=== PATIENT | female | born 1960 | race Caucasian/White ===

== ENCOUNTER → 2016-07-25 | Outpatient (REF) | payer BC ==
[~2016-07-25] MED LIST: APAP325T PO; ASPI325T PO; CARV3.12 PO; CYCL10TA PO; LEVO175T2 PO; MILKSUS PO; MYLASUS16 PO; NABU750T PO; NITR4TASL SL; PLAV75TA38 PO; TOPR25TA PO; [UNRECOGNIZED DRUG - CODE] PO
[2016-07-25 19:50] LABS: BASO % 0.6 % (0.0-1.0); EOS # 0.2 K/mm3 (0.0-0.50); EOS % 2.9 % (0.0-3.0); LARGE UNSTAINED CELL # 0.1 K/mm3 (0.0-0.4); LARGE UNSTAINED CELL % 1.7 % (0.0-4.0); LYMPH # 1.9 K/mm3 (1.5-4.5); LYMPH % 30.1 % (24.0-44.0); MEAN CORPUSCULAR HEMOGLOBIN 29.2 pg (27.0-33.0); MEAN CORPUSCULAR HGB CONC 33.3 g/dl (32.0-36.5); MEAN CORPUSCULAR VOLUME 87.7 fl (80.0-96.0); MONO # 0.4 K/mm3 (0.0-0.8); NEUTROPHILS # 3.6 K/mm3 (1.8-7.7); NEUTROPHILS % 58.7 % (36.0-66.0); PLATELET COUNT, AUTOMATED 252 k/mm3 (150-450); RED CELL DISTRIBUTION WIDTH 13.3 % (11.5-14.5); WHITE BLOOD COUNT 6.1 K/mm3 (4.0-10.0)
[2016-07-25 20:11] LABS: FREE T4 1.38 NG/DL (0.76-1.46)
== END ==
LOC: M SFHCADAM 13:31
PROVIDERS: ATTEND Family Medicine
DX: R05 Cough (principal); R49.0 Dysphonia

== ENCOUNTER → 2016-07-25 | Outpatient (CLI) | payer BC ==
--- NOTE | 2016-07-25 14:07 | REP ---
Chest two views HISTORY: Cough Comparison: 09/05/2014 The lungs are clear. The cardiac silhouette is enlarged. The pulmonary vasculature is normal in appearance. The bony structure is intact. IMPRESSION: Cardiomegaly Signed by Brody Blancas MD 07/25/2016 01:58 P
== END ==
LOC: M ADAMS 13:33
PROVIDERS: ATTEND Family Medicine
DX: R05 Cough (principal)

== ENCOUNTER → 2016-10-12 | Outpatient (CLI) | payer BC ==
[~2016-10-12] MED LIST changes: -APAP325T PO; +APAP325T4 PO; +CELE1CAP4 PO; +ISOVUE-370 76% 100ML VIAL (Q9967) As Ordered ONE; +PLAV1TAB2 PO; -PLAV75TA38 PO
--- NOTE | 2016-10-12 18:40 | REP ---
CT NECK WITH CONTRAST: HISTORY: Dysphonia. CONTRAST: Isovue-370, 75 mL. Calcifications are present in the tonsils. This is secondary to previous inflammatory disease. The naso-, jessica- and hypopharynx and larynx are normal in appearance. The salivary glands are normal. The patient is status post thyroidectomy. There is mild dilatation of the esophagus. This extends from the C7 level inferior to T2. The inferior-most extent is not seen. There is minimal mass effect on the posterior aspect of the trachea. An enlarged lymph node 1.5 cm in width is present in the left internal jugular chain at the level of the jessica- and hypopharynx. Small lymph nodes less than 1 cm in size are present in right internal jugular chain, posterior triangles and submandibular areas. Degenerative change is present in the cervical spine. The lung apices are clear. The visualized sinuses are clear. IMPRESSION: 1. The patient is status post thyroidectomy. 2. There is mild dilatation of the esophagus as described above. A barium swallow may be helpful for further evaluation. 3. There is a single enlarged lymph node 1.5 cm in width in the left internal jugular chain at the level of the jessica- and hypopharynx. Signed by Brody Blancas MD 10/12/2016 07:20 P
== END ==
LOC: M RAD 17:35
PROVIDERS: ATTEND Otolaryngology
DX: R49.0 Dysphonia (principal); R07.0 Pain in throat; R59.0 Localized enlarged lymph nodes; K22.9 Disease of esophagus, unspecified
CPT/HCPCS: 70491; Q9967

== ENCOUNTER → 2016-10-19 | Day surgery (SDC) | payer BC ==
[~2016-10-19] VITALS: Ht 175.3 cm; Wt 131.5 kg
[~2016-10-19] MED LIST changes: +ACETAMINOPHEN TAB 650MG DOSE (2X325MG) As Ordered ONE; +ACETAMINOPHEN TAB 650MG DOSE (2X325MG) PO ONE; -ISOVUE-370 76% 100ML VIAL (Q9967) As Ordered ONE; +LIDOCAINE W/EPINEPHRINE 1% 20ML VIAL As Ordered ONE; +LR 1,000 ML IV ONE; +LR 1,000 ML IV SCH; +METHYLENE BLUE 0.5% (5MG/ML) 10 ML AMP (PROVAYBLUE)(Q9968 PER 1MG) As Ordered ONE; +MIDAZOLAM INJ 2 MG/2 ML VIAL (J2250) As Ordered ONE; +ONDANSETRON 4MG/2ML VIAL (J2405) As Ordered ONE; +ONDANSETRON 4MG/2ML VIAL (J2405) IV PRN; +OXYMETAZOLINE NASAL SPRAY (AFRIN) As Ordered ONE; +PROPOFOL 500 MG/50 ML VIAL As Ordered ONE; +ROCURONIUM BROMIDE 50 MG/5 ML VIAL/SYRINGE As Ordered ONE; +SUCCINYLCHOLINE 100 MG/5 ML SYRINGE (J0330) As Ordered ONE; +dexameTHASONE 4 MG/ML 1ML VIAL (J1100) IV ONE; +fentaNYL 100 MCG/2 ML INJECTION (J3010) As Ordered ONE
[2016-10-19 09:58] LABS: MEAN CORPUSCULAR HEMOGLOBIN 29.7 pg (27.0-33.0); MEAN CORPUSCULAR HGB CONC 33.6 g/dl (32.0-36.5); MEAN CORPUSCULAR VOLUME 88.3 fl (80.0-96.0); RED CELL DISTRIBUTION WIDTH 13.2 % (11.5-14.5)
[2016-10-19 10:39] LABS: THYROXINE (T4) 11.3 UG/DL (4.5-12.0)
[2016-10-19] MEDS: fentaNYL 100 MCG/2 ML INJECTION (J3010) IV PRN ×4 (12:07→12:27)
[2016-10-19 14:25] VITALS: BP 146/88
--- NOTE | 2016-10-19 21:53 | ECGEPIP ---
Stationary ECG Study [facility] Test Date: 2016-10-19 Pat Name: IRINA KERR Department: Room: - Gender: F Community Affairs Manager: : 1960 Requested By: HILARIO STANLEY Order Number: [id number] Reading MD: Josue Obrien Measurements Intervals [place] Rate: 73 P: 53 SD: 181 QRS: 15 QRSD: 80 T: 45 QT: 372 QTc: 412 Interpretive Statements SINUS RHYTHM LOW QRS VOLTAGE IN PRECORDIAL LEADS OLD ANTEROSEPTAL MYOCARDIAL INFARCTION Electronically Signed On 10-19-2016 21:53:39 EDT by Josue Obrien
--- NOTE | 2016-10-24 06:06 | RO ---
DATE OF PROCEDURE: 10/19/2016 PREOPERATIVE DIAGNOSIS: Dysphonia. POSTOPERATIVE DIAGNOSIS: Dysphonia. PROCEDURE PERFORMED: Direct suspension microlaryngoscopy with biopsy of the left vocal cord. SURGEON: Alirio Sanchez MD BUSINESS CONTINUITY GLOBAL DIRECTOR: ANESTHESIA: General. CLINICAL PREAMBLE: This 55-year-old woman presented to the office complaining of hoarseness. Physical examination revealed irregularity of mucosa of the left vocal cord. CT scan revealed a 1.5 cm lymph node in the left cervical lymph node chain. Management options including surgery listed above have been discussed. Patient understood and consented to the procedure. OR NARRATION: Patient was identified in preop holding and brought to the operating room in stable condition. In supine position on the operating table, patient received general anesthesia, followed by oral endotracheal intubation without incident. Patient was prepped and draped in the usual fashion for the procedure. Bimanual palpation of the oral cavity, oropharynx, left posterior pharyngeal wall show no evidence of discrete nodule. The upper dentition was protected. The Dedo-Pilling laryngoscope was then introduced. Visualization the mucosa of the oral cavity, oral tongue, base of tongue, lateral posterior pharyngeal wall, and supraglottis was negative for mucosal lesion. The vocal cords were visualized, and the Dedo laryngoscope was suspended on the García stand. Inspection of the vocal cords showed smooth mucosa overlying both of the vocal cords. Biopsy was performed over the posterior one-third of the left vocal cord as well as the medial aspect of the left posterior one-third of the vocal cord. Hemostasis was achieved using cottonoid pledgets soaked in Afrin solution. At the end of the procedure, sponge and instrument counts were correct. No complication was encountered. Upper dentition was intact at the end of procedure. General anesthesia was reversed, and patient was extubated and brought to recovery room in stable condition.
== END | disposition home or self-care (01) ==
LOC: M SDC 09:08
PROVIDERS: ATTEND Otolaryngology
DX: R49.0 Dysphonia (principal); E03.9 Hypothyroidism, unspecified; E04.1 Nontoxic single thyroid nodule; Z92.3 Personal history of irradiation; Z79.899 Other long term (current) drug therapy
CPT/HCPCS: 31536; 36415; 84436; 84443; 84479; 85027; 88305; 93005; J0330; J1100; J2250; J2405; J3010

== ENCOUNTER → 2016-11-14 | Outpatient (CLI) | payer BC ==
[~2016-11-14] MED LIST changes: -ACETAMINOPHEN TAB 650MG DOSE (2X325MG) As Ordered ONE; -ACETAMINOPHEN TAB 650MG DOSE (2X325MG) PO ONE; +E-Z-GAS II EFFERVESCENT PACKET (SODIUM BICARB./CITRIC ACID/SIMETHICONE) As Ordered ONE; +E-Z-HD 98% w/w 340GM SUSP BTL As Ordered ONE; +E-Z-PAQUE 96% w/w SUSP 176GM BTL As Ordered ONE; -LIDOCAINE W/EPINEPHRINE 1% 20ML VIAL As Ordered ONE; -LR 1,000 ML IV ONE; -LR 1,000 ML IV SCH; -METHYLENE BLUE 0.5% (5MG/ML) 10 ML AMP (PROVAYBLUE)(Q9968 PER 1MG) As Ordered ONE; -MIDAZOLAM INJ 2 MG/2 ML VIAL (J2250) As Ordered ONE; -ONDANSETRON 4MG/2ML VIAL (J2405) As Ordered ONE; -ONDANSETRON 4MG/2ML VIAL (J2405) IV PRN; -OXYMETAZOLINE NASAL SPRAY (AFRIN) As Ordered ONE; -PROPOFOL 500 MG/50 ML VIAL As Ordered ONE; -ROCURONIUM BROMIDE 50 MG/5 ML VIAL/SYRINGE As Ordered ONE; -SUCCINYLCHOLINE 100 MG/5 ML SYRINGE (J0330) As Ordered ONE; -dexameTHASONE 4 MG/ML 1ML VIAL (J1100) IV ONE; -fentaNYL 100 MCG/2 ML INJECTION (J3010) As Ordered ONE
--- NOTE | 2016-11-14 20:39 | REP ---
ESOPHAGRAM: Procedure was performed by ELENA Almaraz under the direct supervision of Dr. Plasencia. All imaging was reviewed with him prior to dictation. The patient was able to ingest liquid barium and air in quantities sufficient to produce a double contrast exam. The oral and pharyngeal stages of deglutition appeared unremarkable. The esophagus is somewhat dilated. On the upright imaging, the esophagus clears promptly. There is no evidence of esophagitis, stricture, mucosal ring or hiatal hernia. On prone imaging there is a to-and-fro mechanism within the esophagus and the barium never readily clears out easily. Gastroesophageal reflux was not observed, but the esophagus never readily clears to appropriately evaluate. IMPRESSION: To-and-fro type mechanism when the patient is prone causing barium to slowly completely clear from the esophagus. Fluoroscopy time 1 minute and 32 seconds. Reviewed by ELENA Melchor 11/15/2016 10:12 AEdited and Signed by Robbie Plasencia MD 11/15/2016 08:09 P
== END ==
LOC: M RAD 09:13
PROVIDERS: ATTEND Otolaryngology
DX: K21.9 Gastro-esophageal reflux disease without esophagitis (principal)

== ENCOUNTER → 2017-03-14 | Outpatient (CLI) | payer BC ==
[~2017-03-14] MED LIST changes: -E-Z-GAS II EFFERVESCENT PACKET (SODIUM BICARB./CITRIC ACID/SIMETHICONE) As Ordered ONE; -E-Z-HD 98% w/w 340GM SUSP BTL As Ordered ONE; -E-Z-PAQUE 96% w/w SUSP 176GM BTL As Ordered ONE
--- NOTE | 2017-03-15 08:00 | REP ---
Lumbar spine five views: There is scoliosis convex right. There is degenerative disc disease at every lumbar level. Upon review of the CT of the abdomen and pelvis on 02/04/2015. There is no spondylolysis. There is no spondylolisthesis. There is facet osteoarthritis. There is a left hip arthroplasty. Impression: Scoliosis convex right. Multilevel degenerative disc disease. Facet osteoarthritis. Left hip arthroplasty. Half Signed by Robbie Pinzon MD 03/15/2017 07:51 A
== END ==
LOC: M ADAMS 08:51
PROVIDERS: ATTEND Family Medicine
DX: M51.36 Other intervertebral disc degeneration, lumbar region (principal)

== ENCOUNTER → 2017-11-02 | Outpatient (CLI) | payer OTHER | LOC: M RAD 16:59 | DX: M17.11 Unilateral primary osteoarthritis, right knee (principal); Z96.642 Presence of left artificial hip joint; M65.251 Calcific tendinitis, right thigh | CPT/HCPCS: 73502 ==

== ENCOUNTER → 2018-05-31 | Outpatient (CLI) | payer OTHER ==
[~2018-05-31] MED LIST changes: +MILK120011 PO; -MILKSUS PO; +NABU-119 PO; -NABU750T PO; -TOPR25TA PO; +TOPR25TA13 PO; +[UNRECOGNIZED DRUG - CODE] PO; -[UNRECOGNIZED DRUG - CODE] PO
--- NOTE | 2018-06-01 12:05 | REP ---
Clinical: Cough. Technique: PA and lateral views of the chest. Comparison: 07/25/2016. Findings: Mediastinum and cardiac silhouette are normal. Lung talavera demonstrate chronic changes. Trace left basilar atelectasis cannot be excluded. No focal consolidation, effusion, or pneumothorax. Skeletal structures intact. Impression: Cannot exclude subtle left basilar atelectasis. Electronically Signed by Fitz Bone MD 06/01/2018 11:56 A
== END ==
LOC: M ADAMS 10:55
PROVIDERS: ATTEND Family Medicine
DX: R91.8 Other nonspecific abnormal finding of lung field (principal); R05 Cough

== ENCOUNTER → 2019-09-04 | Outpatient (CLI) | payer OTHER ==
[~2019-09-04] MED LIST changes: +ASPI-1 PO; -ASPI325T PO; +CYCL-707 PO; -CYCL10TA PO; +E-Z-GAS II EFFERVESCENT PACKET (SODIUM BICARB./CITRIC ACID/SIMETHICONE) As Ordered ONE; +E-Z-HD 98% w/w 340GM SUSP BTL As Ordered ONE; +E-Z-PAQUE 96% w/w SUSP 176GM BTL As Ordered ONE; +TOPR25TA PO; -TOPR25TA13 PO
--- NOTE | 2019-09-05 11:17 | REP ---
Upper GI air contrast The procedure was performed under the direct supervision of Dr. Plasencia. The images were reviewed with Dr. Plasencia The oracle technical architect film shows no organomegaly or pathological masses. The intestinal gas pattern is non-specific. Or surgical clips in the right upper quadrant. The patient is status post bilateral hip arthroplasty. Liquid barium and gas producing crystals were given in the erect position as well as liquid barium in the prone oblique position in order to perform a double contrast upper GI examination. The oral and pharyngeal stages of deglutition are unremarkable. Esophageal transport is prompt and efficient and there is no esophagitis, stricture or mucosal ring. There is a small sliding-type hiatal hernia. The esophagus is patulous. Gastroesophageal reflux is not demonstrated on this examination. The stomach lynn are normally outlined . The rugal folds are smooth and regular. There is no gastritis neoplasm or ulcer disease. The duodenal lynn are normally outlined . The mucosal folds are smooth and regular. There is no duodenitis pancreatitis peptic ulcer disease or neoplasm. The visualized portion of the proximal small bowel appears normal in course and caliber. Impression: The esophagus is patulous otherwise, unremarkable double contrast upper GI examination. 1.6 minutes of fluoro time was utilized for this procedure. Electronically Signed by ELENA Roberts 09/04/2019 05:28 P Electronically Signed by Robbie Plasencia MD 09/05/2019 11:09 A
== END ==
LOC: M RAD 07:48
PROVIDERS: ATTEND Internal Medicine Gastroenterology
DX: K21.9 Gastro-esophageal reflux disease without esophagitis (principal)

== ENCOUNTER → 2019-12-25 | Outpatient (REF) | payer OTHER ==
[~2019-12-25] MED LIST changes: -E-Z-GAS II EFFERVESCENT PACKET (SODIUM BICARB./CITRIC ACID/SIMETHICONE) As Ordered ONE; -E-Z-HD 98% w/w 340GM SUSP BTL As Ordered ONE; -E-Z-PAQUE 96% w/w SUSP 176GM BTL As Ordered ONE; -NABU-119 PO; +NABU-53 PO
[2019-12-25 20:12] LABS: ALBUMIN 3.8 GM/DL (3.2-5.2); BILIRUBIN,TOTAL 0.3 MG/DL (0.2-1.0); C REACTIVE PROTEIN QUANTITATIV 0.71 MG/DL (0.00-0.30); CALCIUM LEVEL 9.1 MG/DL (8.8-10.2); CREATININE FOR GFR 1.32 MG/DL (0.55-1.30); FREE T4 0.94 NG/DL (0.76-1.46); GLOMERULAR FILTRATION RATE 43.6 (>45); POTASSIUM SERUM 4.3 MEQ/L (3.5-5.1); THYROID STIMULATING HORMONE 8.31 uIU/ML (0.358-3.740); TOTAL PROTEIN 7.1 GM/DL (6.4-8.2)
== END ==
LOC: M LAB REF 18:30
PROVIDERS: ATTEND Family Medicine
DX: M25.50 Pain in unspecified joint (principal); R53.83 Other fatigue; M25.40 Effusion, unspecified joint; M79.10 Myalgia, unspecified site

== ENCOUNTER → 2019-12-25 | Outpatient (CLI) | payer OTHER ==
--- NOTE | 2020-01-08 09:02 | REP ---
GASTRIC EMPTYING NUCLEAR SCINTIGRAPHY HISTORY: Early satiety. TECHNIQUE: 1.04 mCi of Technetium-99m sulfur colloid is ingested mixed with two scrambled eggs and 6 ounces of water. Sequential anterior and posterior abdominal images are acquired and regions of interest are drawn around the stomach. Imaging and observation period is 89 minutes. RESULTS: The expected T1/2 is 90 minutes. 23% gastric emptying was observed during the 89 minute observation for a calculated T1/2 of 189 minutes. IMPRESSION: Prolonged gastric emptying. MTDD
== END ==
LOC: M RAD 08:21
PROVIDERS: ATTEND Internal Medicine Gastroenterology
DX: R68.81 Early satiety (principal); K21.9 Gastro-esophageal reflux disease without esophagitis; K44.9 Diaphragmatic hernia without obstruction or gangrene; K30 Functional dyspepsia
CPT/HCPCS: 78264; A9541

== ENCOUNTER 2020-03-30 07:16 | Emergency (ER) | payer OTHER ==
[~2020-03-30] VITALS: Ht 175.3 cm; Wt 134.4 kg
[2020-03-30] MEDS ORDERED: MELO15TA28 PO (07:30)
[2020-03-30] MEDS ORDERED: HYDR200T3 (07:30)
[2020-03-30] MEDS ORDERED: FOLI1TAB11 (07:30)
[2020-03-30] MEDS ORDERED: PANT40TA29 (07:30)
[2020-03-30] MEDS ORDERED: METH2.5T48 PO (07:30)
[2020-03-30] MEDS ORDERED: ONDANSETRON 4 MG ORAL DISINTEGRATING TAB PO ONE (08:00)
--- NOTE | 2020-03-30 08:23 | REP ---
INDICATION: slip on ice/ hit head COMPARISON: None. TECHNIQUE: Axial noncontrast images from the skull base to the thoracic inlet with coronal reformations. This CT examination was performed using the following dose reduction techniques: Automated exposure control, adjustment of mA and/or kv according to the patient's size, and use of iterative reconstruction technique. FINDINGS: There is a scalp contusion/hematoma along the high right posterior vertex. No underlying calvarial fracture is identified and there is no obvious intracranial contrecoup injury noted. Age-related atrophy and microvascular ischemic changes are appreciated. The ventricles and sulci are symmetric. Plasencia-white differentiation is maintained. There is no evidence for acute intracranial hemorrhage, mass/mass effect, pathology or infarction. No extra-axial fluid collection. Calvarium is intact. Paranasal sinuses and mastoid air cells are clear. IMPRESSION: 1. Right posterior scalp contusion/hematoma. 2. Age related atrophy and microvascular ischemic changes. 3. No acute intracranial pathology or trauma/injury. <Electronically signed by Fitz Bone > 03/30/20 0819
--- NOTE | 2020-03-30 08:29 | REP ---
INDICATION: slip on ice/ hit head COMPARISON: None. TECHNIQUE: Axial noncontrast images from the skull base to the thoracic inlet with coronal and sagittal re-formations This CT examination was performed using the following dose reduction techniques: Automated exposure control, adjustment of mA and/or kv according to the patient's size, and use of iterative reconstruction technique. FINDINGS: Reversal of normal lordosis along with moderate to advanced multilevel degenerative disc osteophyte complexes are appreciated. Findings include chronic grade 1 anterolisthesis at the C3-4 level of approximately 2.5 mm as well as osteophytosis with endplate sclerosis, disc space narrowing and facet arthropathy primarily involving C4 through C7. There is no evidence for acute fracture / compression injury or acute subluxation. Spinal canal is patent. Posterior elements are intact. Paravertebral soft tissues are normal. IMPRESSION: 1. Moderate to advanced degenerative spondylosis and reversal of normal lordosis as described above. 2. No evidence for acute cervical vertebral trauma/injury. <Electronically signed by Fitz Bone > 03/30/20 [id number]
[2020-03-30] MEDS ORDERED: ONDA4TAB6 PO (08:58)
[2020-03-30] MEDS ORDERED: KETO10TAB PO (08:58)
[2020-03-30] MEDS ORDERED: KETOROLAC TROMETHAMINE 10 MG TAB PO ONE (09:00)
[2020-03-30 09:10] VITALS: BP 160/70
== END 2020-03-30 09:14 | disposition home or self-care (01) ==
LOC: M ED 07:16
DX: S09.90XA Unspecified injury of head, initial encounter (principal); W00.0XXA Fall on same level due to ice and snow, initial encounter; Y92.9 Unspecified place or not applicable; Y93.9 Activity, unspecified; Y99.9 Unspecified external cause status; E03.9 Hypothyroidism, unspecified; M06.9 Rheumatoid arthritis, unspecified
CPT/HCPCS: 70450; 72125; 80047; 99283; Q0162

== ENCOUNTER → 2020-06-17 | Outpatient (REF) | payer OTHER ==
[~2020-06-17] MED LIST changes: +FOLI1TAB11; +HYDR200T3; +KETO10TAB PO; +MELO15TA28 PO; +METH2.5T48 PO; +ONDA4TAB6 PO; +PANT40TA29
[2020-06-17 17:47] LABS: FREE T4 1.35 NG/DL (0.76-1.46); THYROID STIMULATING HORMONE 0.89 uIU/ML (0.358-3.740)
== END ==
LOC: M SFHCADAM 12:05
PROVIDERS: ATTEND Family Medicine
DX: E03.9 Hypothyroidism, unspecified (principal)

== ENCOUNTER → 2020-06-29 | Outpatient (REF) | payer OTHER ==
[2020-06-29 13:17] LABS: BILIRUBIN,TOTAL 0.3 MG/DL (0.2-1.0); CALCIUM LEVEL 9.8 MG/DL (8.8-10.2); CREATININE FOR GFR 1.24 MG/DL (0.55-1.30); GLOMERULAR FILTRATION RATE 46.8 (>45); MAGNESIUM LEVEL 2.1 MG/DL (1.8-2.4); POTASSIUM SERUM 4.8 MEQ/L (3.5-5.1)
[2020-06-29 13:25] LABS: TOTAL 25(OH) VITAMIN D 28.2 NG/ML (30.0-100.0)
== END ==
LOC: M LABDRWAD 12:06
PROVIDERS: ATTEND Nurse Practitioner Family
DX: R10.13 Epigastric pain (principal); K57.30 Diverticulosis of large intestine without perforation or abscess without bleeding; K44.9 Diaphragmatic hernia without obstruction or gangrene; K64.0 First degree hemorrhoids; K21.9 Gastro-esophageal reflux disease without esophagitis; R68.81 Early satiety; K31.84 Gastroparesis; R10.11 Right upper quadrant pain; R13.10 Dysphagia, unspecified; E56.9 Vitamin deficiency, unspecified

== ENCOUNTER → 2020-06-29 | Outpatient (REF) | payer OTHER ==
[2020-06-29 13:20] LABS: CREATININE FOR GFR 1.22 MG/DL (0.55-1.30); GLOMERULAR FILTRATION RATE 47.7 (>45)
== END ==
LOC: M LABDRWAD 12:04
PROVIDERS: ATTEND Physician Assistant
DX: Z79.899 Other long term (current) drug therapy (principal); M35.9 Systemic involvement of connective tissue, unspecified; R79.89 Other specified abnormal findings of blood chemistry

== ENCOUNTER → 2020-07-08 | Outpatient (CLI) | payer OTHER ==
--- NOTE | 2020-07-08 10:10 | REP ---
INDICATION: RIGHT UPPER QUADRANT PAIN COMPARISON: None. TECHNIQUE: Real time oquendo scale ultrasound examination using curved array transducer. FINDINGS: Liver is mildly enlarged measuring 18.5 cm in craniocaudal length without focal hepatic lesion identified. The pancreas is incompletely evaluated due to interposed bowel gas but visualized portions appear normal. The gallbladder demonstrates multiple gallstones along with sonographic Corrigan sign, but no gallbladder wall thickening or pericholecystic fluid. Common bile duct is upper limits of normal at 7 mm. Right kidney is normal in reniform shape without hydronephrosis and measures 9.2 x 3.6 x 3.6 cm. No ascites in the visualized right upper quadrant. IMPRESSION: 1. Cholelithiasis with right upper quadrant tenderness. Correlation is required as acute cholecystitis cannot be excluded. <Electronically signed by Fitz Bone > 07/08/20 1003
== END ==
LOC: M RAD 08:38
PROVIDERS: ATTEND Nurse Practitioner Family
DX: K80.20 Calculus of gallbladder without cholecystitis without obstruction (principal); R10.13 Epigastric pain; K57.30 Diverticulosis of large intestine without perforation or abscess without bleeding; K44.9 Diaphragmatic hernia without obstruction or gangrene; K64.0 First degree hemorrhoids; K21.9 Gastro-esophageal reflux disease without esophagitis; R68.81 Early satiety; K31.84 Gastroparesis; R10.11 Right upper quadrant pain; R13.10 Dysphagia, unspecified; E56.9 Vitamin deficiency, unspecified

== ENCOUNTER → 2020-08-17 | Outpatient (REF) | payer OTHER ==
[~2020-08-17] MED LIST changes: -NABU-53 PO; +NABU-73 PO
[2020-08-17 19:31] LABS: CREATININE FOR GFR 1.22 MG/DL (0.55-1.30); GLOMERULAR FILTRATION RATE 47.7 (>45)
== END ==
LOC: M LABDRWAD 18:35
PROVIDERS: ATTEND Internal Medicine
DX: Z79.899 Other long term (current) drug therapy (principal)

== ENCOUNTER 2020-10-06 18:00 | Emergency (ER) | payer OTHER ==
[~2020-10-06] VITALS: Ht 175.3 cm; Wt 132.7 kg
[2020-10-06] MEDS ORDERED: ONDANSETRON 4MG/2ML VIAL IV ONE (19:20)
[2020-10-06] MEDS ORDERED: ACETAMINOPHEN TAB 650MG DOSE (2X325MG) PO ONE (19:20)
[2020-10-06 19:48] LABS: HEMATOCRIT 34.1 % (36.0-47.0); HEMOGLOBIN 11.4 g/dl (12.0-15.5); MEAN CORPUSCULAR HEMOGLOBIN 31.1 pg (27.0-33.0); MEAN CORPUSCULAR HGB CONC 33.4 g/dl (32.0-36.5); MEAN CORPUSCULAR VOLUME 93.2 fl (80.0-96.0); PLATELET COUNT, AUTOMATED 159 10^3/uL (150-450); RED BLOOD COUNT 3.66 10^6/uL (4.00-5.40); WHITE BLOOD COUNT 4.8 10^3/uL (4.0-10.0)
[2020-10-06 19:50] LABS: ALBUMIN 3.5 GM/DL (3.2-5.2); BILIRUBIN,DIRECT 0.3 MG/DL (0.0-0.2); BILIRUBIN,TOTAL 1.1 MG/DL (0.2-1.0); CALCIUM LEVEL 8.8 MG/DL (8.8-10.2); CREATININE FOR GFR 1.21 MG/DL (0.55-1.30); GLOMERULAR FILTRATION RATE 48.2 (>45); POTASSIUM SERUM 3.8 MEQ/L (3.5-5.1); TOTAL PROTEIN 6.8 GM/DL (6.4-8.2)
[2020-10-06 20:26] LABS: RSV AMPLIFICATION NEGATIVE (NEGATIVE)
[2020-10-06] MEDS ORDERED: LR 1,000 ML IV SCH (20:30)
[2020-10-06] MEDS ORDERED: ISOVUE-370 76% 100ML VIAL As Ordered ONE (20:35)
[2020-10-06] MEDS ORDERED: LR 1,000 ML IV ONE ×2 (20:40→23:10)
[2020-10-06 20:52] LABS: ATYPICAL LYMPH 1 % (0-5); LYMPHOCYTES 10 % (16-44); MONOCYTES 3 % (0-5); NEUTROPHILS 79 % (28-66); PLATELET ESTIMATE NORMAL (NORMAL)
--- NOTE | 2020-10-06 22:10 | REPVR ---
PROCEDURE INFORMATION: Exam: CT Abdomen and Pelvis with Contrast Exam date and time: 10/06/20 (8:43pm) Age: 59 years old Clinical indication: Right-sided abdominal pain. History of right adrenalectomy. TECHNIQUE: Imaging protocol: Computed tomography of the abdomen and pelvis with contrast. Radiation optimization: All CT scans at this facility use at least one of these dose optimization techniques: automated exposure control; mA and/or kV adjustment per patient size (includes targeted exams where dose is matched to clinical indication); or iterative reconstruction. Contrast material: Isovue 370 Contrast volume: 100 ml Contrast route: IV COMPARISON: CT ABDOMEN PELVIS of 02/04/15 CT ABDOMEN PELVIS of 09/05/14 FINDINGS: Liver: Normal. No solid mass. Gallbladder and bile ducts: Distended gallbladder, containing heterogeneous and hyperdense material. No ductal dilatation. Pancreas: Normal. No ductal dilatation. Spleen: Normal. No splenomegaly. Adrenal glands: S/P right adrenalectomy. Kidneys and ureters: No hydronephrosis. Redemonstration of complex, fat-containing mass (3 cm diameter), laterally at the midpole of the left kidney (compatible with an angiomyolipoma) (stable appearance). Stomach and bowel: No bowel obstruction. No mucosal thickening. Scattered sigmoid diverticuli. Appendix: No evidence of appendicitis. Intraperitoneal space: Unremarkable. No free air. No significant fluid collection. Vasculature: Unremarkable. No abdominal aortic aneurysm. Lymph nodes: Unremarkable. No enlarged lymph nodes. Urinary bladder: Unremarkable as visualized. Reproductive: Unremarkable as visualized. Bones/joints: No acute fracture. Advanced multilevel degenerative thoracolumbar spine changes. Vacuum disc phenomenon at multiple lower thoracic and lumbar spine levels. S/P bilateral total hip arthroplasty. Soft tissues: Unremarkable. IMPRESSION: No acute pathology. S/P right adrenalectomy. S/P bilateral total hip arthroplasty. Distended gallbladder, probably containing sludge and stones. 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 Electronically signed by: Eladia Becerra On 10/06/2020 22:09:54 PM
[2020-10-06] MEDS ORDERED: NS 1,000 ML IV ONE ×2 (23:45→23:50)
[2020-10-06 23:59] VITALS: BP 138/69
--- NOTE | 2020-10-08 17:51 | ECGEPIP ---
[facility] - ED Test Date: 2020-10-06 Pat Name: IRINA KERR Department: Room: - Gender: Female City Alderman: : 1960 Requested By: JOYCE Bahena Order Number: [id number] Reading MD: Karmen Amaro Measurements Intervals [place] Rate: 130 P: 60 DE: 182 QRS: 28 QRSD: 82 T: 39 QT: 272 QTc: 400 Interpretive Statements Sinus tachycardia Low voltage QRS Septal infarct , age undetermined NSTTW abnormalities increased rate 10/19/16 Electronically Signed on 10-08-2020 17:51:04 EDT by Karmen Amaro
== END 2020-10-07 00:15 | disposition home or self-care (01) ==
LOC: M ED 18:00
DX: K52.9 Noninfective gastroenteritis and colitis, unspecified (principal); E78.5 Hyperlipidemia, unspecified; F17.200 Nicotine dependence, unspecified, uncomplicated
CPT/HCPCS: 74177; 80047; 80048; 80076; 83690; 85025; 87631; 93005; 96361; 96374; 99284; J2405; Q9967

== ENCOUNTER → 2020-10-23 | Outpatient (REF) | payer OTHER ==
[2020-10-23 12:01] LABS: BASO # 0.1 10^3/uL (0.0-0.2); EOS # 0.1 10^3/uL (0.0-0.5); EOS % 1.9 % (0.0-3.0); HEMATOCRIT 35.1 % (36.0-47.0); HEMOGLOBIN 11.3 g/dl (12.0-15.5); LYMPH # 1.1 10^3/uL (1.5-5.0); LYMPH % 21.2 % (24.0-44.0); MEAN CORPUSCULAR HGB CONC 32.2 g/dl (32.0-36.5); MEAN CORPUSCULAR VOLUME 96.2 fl (80.0-96.0); MONO # 0.3 10^3/uL (0.0-0.8); NEUTROPHILS # 3.6 10^3/uL (1.5-8.5); NEUTROPHILS % 69.5 % (36.0-66.0); PLATELET COUNT, AUTOMATED 408 10^3/uL (150-450); RED BLOOD COUNT 3.65 10^6/uL (4.00-5.40); WHITE BLOOD COUNT 5.1 10^3/uL (4.0-10.0)
[2020-10-23 12:38] LABS: BILIRUBIN,TOTAL 0.6 MG/DL (0.2-1.0); CALCIUM LEVEL 9.5 MG/DL (8.8-10.2); CREATININE FOR GFR 1.14 MG/DL (0.55-1.30); GLOMERULAR FILTRATION RATE 51.6 (>45); POTASSIUM SERUM 4.6 MEQ/L (3.5-5.1); THYROID STIMULATING HORMONE 10.2 uIU/ML (0.358-3.740); TOTAL PROTEIN 7.4 GM/DL (6.4-8.2)
== END ==
LOC: M SFHCADAM 09:19
PROVIDERS: ATTEND Family Medicine
DX: R19.7 Diarrhea, unspecified (principal)

== ENCOUNTER → 2020-10-30 | Outpatient (REF) | payer OTHER ==
[2020-10-30 13:02] LABS: FREE T4 1.15 NG/DL (0.76-1.46); THYROID STIMULATING HORMONE 7.11 uIU/ML (0.358-3.740)
== END ==
LOC: M SFHCADAM 08:46
PROVIDERS: ATTEND Family Medicine
DX: E03.9 Hypothyroidism, unspecified (principal)

== ENCOUNTER → 2020-11-17 | Outpatient (REF) | payer OTHER | LOC: M SFHCWAGY 19:27 | PROVIDERS: ATTEND Nurse Practitioner Women's Health | DX: Z12.4 Encounter for screening for malignant neoplasm of cervix (principal) | CPT/HCPCS: 87624; G0123 ==

== ENCOUNTER → 2020-11-17 | Outpatient (CLI) | payer OTHER ==
--- NOTE | 2020-11-17 16:03 | REPMRS ---
Patient History The patient states she had a clinical breast exam in November 2020. Patient is postmenopausal and has history of thyroid cancer at age 36. Family history of breast cancer at age 50 or over in maternal grandmother, pancreatic cancer under age 50 in paternal uncle. Stereotactic core biopsy of the left breast. Patient states no breast complaints today. Patient has signed MRS History Sheet. Digital Woman Screen Mammo: November 17, 2020 - Exam #: [id number] Bilateral CC and MLO view(s) were taken. Technologist: Rola Saxena, Technologist No prior studies available for comparison. FINDINGS: The breast tissue is almost entirely fat. The Volpara volumetric breast density category is: A. There are scattered coarse calcifications bilaterally. There is no evidence of dominant mass, architectural distortion, or grouped microcalcification typical of malignancy. 3-D tomosynthesis shows no additional findings. Assessment: BI-RADS/ACR category 2 mammogram. Benign Findings. Recommendation Routine screening mammogram of both breasts in 1 year (for women over age 40). This patient's [facility] Lifetime Breast Cancer RIsk is estimated at 10.7 %. This mammogram was interpreted with the aid of an FDA-approved computer-aided dectection system. Electronically Signed By: Seun Brito MD 11/17/20 0430
== END ==
LOC: M WHC 12:42
PROVIDERS: ATTEND Nurse Practitioner Women's Health
DX: Z12.31 Encounter for screening mammogram for malignant neoplasm of breast (principal)

== ENCOUNTER → 2021-05-28 | Outpatient (CLI) | payer OTHER ==
[2021-05-28 13:42] LABS: FREE T4 1.22 NG/DL (0.76-1.46); THYROID STIMULATING HORMONE 0.383 uIU/ML (0.358-3.740)
== END ==
LOC: M PLALAB 11:37
PROVIDERS: ATTEND Internal Medicine Endocrinology, Diabetes & Metabolism
DX: E03.9 Hypothyroidism, unspecified (principal)

== ENCOUNTER 2021-10-30 11:46 | Emergency (ER) | payer OTHER ==
[~2021-10-30] VITALS: Ht 172.7 cm; Wt 122.7 kg
[2021-10-30] MEDS ORDERED: FAMO40TA3 (11:59)
[2021-10-30] MEDS ORDERED: LEXA1TAB (11:59)
[2021-10-30] MEDS ORDERED: MORPHINE 4 MG/ML 1ML VIAL/SYRINGE IV ONE (12:55)
[2021-10-30 13:17] LABS: APPEARANCE, URINE CLEAR (CLEAR); BACTERIA, URINE AUTO 3+ (NEGATIVE); BILIRUBIN, URINE AUTO NEGATIVE (NEGATIVE); BLOOD, URINE BLOOD NEGATIVE (NEGATIVE); COLOR, URINE YELLOW (YELLOW); GLUCOSE, URINE (UA) AUTO NEGATIVE (NEGATIVE); KETONE, URINE AUTO NEGATIVE (NEGATIVE); LEUKOCYTE ESTERASE, URINE AUTO 1+ (NEGATIVE); NITRITE, URINE AUTO POSITIVE (NEGATIVE); PROTEIN, URINE AUTO NEGATIVE (NEGATIVE); RBC, URINE AUTO 1 /HPF (0-3); SPECIFIC GRAVITY URINE AUTO 1.006 (1.002-1.035); SQUAMOUS EPITHELIAL CELL UR AU 0 /HPF (0-6); UROBILINOGEN, URINE AUTO 0.2 mg/dL (0.0-2.0); WBC, URINE AUTO 10 /HPF (0-3)
[2021-10-30 13:39] LABS: HEMATOCRIT 38.9 % (36.0-47.0); MEAN CORPUSCULAR HEMOGLOBIN 30.6 pg (27.0-33.0); MEAN CORPUSCULAR HGB CONC 33.4 g/dl (32.0-36.5); MEAN CORPUSCULAR VOLUME 91.5 fl (80.0-96.0); PLATELET COUNT, AUTOMATED 263 10^3/uL (150-450); RED BLOOD COUNT 4.25 10^6/uL (4.00-5.40); WHITE BLOOD COUNT 7.1 10^3/uL (4.0-10.0)
[2021-10-30 14:14] LABS: ALBUMIN 4.1 GM/DL (3.2-5.2); BILIRUBIN,TOTAL 0.4 MG/DL (0.2-1.0); CALCIUM LEVEL 9.9 MG/DL (8.8-10.2); CREATININE FOR GFR 1.32 MG/DL (0.55-1.30); GLOMERULAR FILTRATION RATE 43.4 (>45); POTASSIUM SERUM 4.8 MEQ/L (3.5-5.1); TOTAL PROTEIN 7.8 GM/DL (6.4-8.2)
[2021-10-30] MEDS ORDERED: ULTR50TA8 PO (14:46)
[2021-10-30 14:55] VITALS: BP 135/81
== END 2021-10-30 14:58 | disposition home or self-care (01) ==
LOC: EDBD 11:46 → M ED 11:46
DX: S09.90XA Unspecified injury of head, initial encounter (principal); S70.02XA Contusion of left hip, initial encounter; E86.0 Dehydration; V49.40XA Driver injured in collision with unspecified motor vehicles in traffic accident, initial encounter; F41.9 Anxiety disorder, unspecified; E03.9 Hypothyroidism, unspecified; Z79.899 Other long term (current) drug therapy; Z79.811 Long term (current) use of aromatase inhibitors; Y92.9 Unspecified place or not applicable; Y93.9 Activity, unspecified; Y99.9 Unspecified external cause status
CPT/HCPCS: 36415; 70450; 71045; 73502; 80053; 81001; 85027; 96374; 99284; J2270

== ENCOUNTER → 2021-11-08 | Outpatient (REF) | payer OTHER ==
[~2021-11-08] MED LIST changes: +FAMO40TA3; +LEXA1TAB; +ULTR50TA8 PO
== END ==
LOC: EEVIPCON 12:35 → M SFHCADAM 12:35
PROVIDERS: ATTEND Physician Assistant
DX: M54.50 Low back pain, unspecified (principal)

== ENCOUNTER → 2022-01-04 | Outpatient (REF) | payer OTHER ==
[2022-01-04 13:00] LABS: BASO # 0.1 10^3/uL (0.0-0.2); BASO % 0.7 % (0.0-1.0); EOS # 0.2 10^3/uL (0.0-0.5); EOS % 2.3 % (0.0-3.0); HEMATOCRIT 38.1 % (36.0-47.0); HEMOGLOBIN 12.7 g/dl (12.0-15.5); LYMPH # 1.5 10^3/uL (1.5-5.0); LYMPH % 22.3 % (24.0-44.0); MEAN CORPUSCULAR HEMOGLOBIN 30.6 pg (27.0-33.0); MEAN CORPUSCULAR HGB CONC 33.3 g/dl (32.0-36.5); MEAN CORPUSCULAR VOLUME 91.8 fl (80.0-96.0); MONO # 0.6 10^3/uL (0.0-0.8); MONO % 8.4 % (2.0-8.0); NEUTROPHILS # 4.5 10^3/uL (1.5-8.5); NEUTROPHILS % 65.9 % (36.0-66.0); PLATELET COUNT, AUTOMATED 232 10^3/uL (150-450); RED BLOOD COUNT 4.15 10^6/uL (4.00-5.40); WHITE BLOOD COUNT 6.9 10^3/uL (4.0-10.0)
[2022-01-04 13:45] LABS: THYROID STIMULATING HORMONE 1.77 uIU/ML (0.358-3.740)
[2022-01-04 14:20] LABS: TOTAL 25(OH) VITAMIN D 28.1 NG/ML (30.0-100.0)
== END ==
LOC: M SFHCADAM 09:37
PROVIDERS: ATTEND Physician Assistant
DX: E03.9 Hypothyroidism, unspecified (principal); E55.9 Vitamin D deficiency, unspecified; K21.9 Gastro-esophageal reflux disease without esophagitis

== ENCOUNTER → 2022-01-28 | Outpatient (CLI) | payer OTHER | LOC: M PLARAD 10:20 | PROVIDERS: ATTEND Physician Assistant | DX: M41.9 Scoliosis, unspecified (principal); M51.36 Other intervertebral disc degeneration, lumbar region ==

== ENCOUNTER → 2022-06-23 | Outpatient (REF) | payer OTHER ==
[~2022-06-23] MED LIST changes: +CLOP75TA99 PO; -PLAV1TAB2 PO
[2022-06-23 13:57] LABS: BASO % 0.7 % (0.0-1.0); EOS # 0.1 10^3/uL (0.0-0.5); EOS % 2.1 % (0.0-3.0); HEMATOCRIT 35.6 % (36.0-47.0); HEMOGLOBIN 11.5 g/dl (12.0-15.5); LYMPH # 1.2 10^3/uL (1.5-5.0); LYMPH % 28.7 % (24.0-44.0); MEAN CORPUSCULAR HEMOGLOBIN 30.9 pg (27.0-33.0); MEAN CORPUSCULAR HGB CONC 32.3 g/dl (32.0-36.5); MEAN CORPUSCULAR VOLUME 95.7 fl (80.0-96.0); MONO # 0.4 10^3/uL (0.0-0.8); MONO % 10.4 % (2.0-8.0); NEUTROPHILS # 2.4 10^3/uL (1.5-8.5); NEUTROPHILS % 57.6 % (36.0-66.0); PLATELET COUNT, AUTOMATED 232 10^3/uL (150-450); RED BLOOD COUNT 3.72 10^6/uL (4.00-5.40); WHITE BLOOD COUNT 4.2 10^3/uL (4.0-10.0)
[2022-06-23 14:28] LABS: ALBUMIN 3.7 G/DL (3.2-5.2); BILIRUBIN,TOTAL 0.5 MG/DL (0.3-1.2); CHOLESTEROL RISK RATIO 2.31 (<5); CREATININE FOR GFR 1.1 MG/DL (0.55-1.30); FREE T4 1.3 NG/DL (0.89-1.76); GLOMERULAR FILTRATION RATE 53.4 (>45); HDL CHOLESTEROL 63.2 MG/DL (>40); LDL CHOLESTEROL 70.4 MG/DL (<100); NON-HDL-C 82.8 MG/DL; POTASSIUM SERUM 4.4 MMOL/L (3.5-5.1); THYROID STIMULATING HORMONE 2.423 uIU/ML (0.55-4.78); TOTAL 25(OH) VITAMIN D 29.9 NG/ML (20.0-100.0); TOTAL PROTEIN 6.4 G/DL (5.7-8.2)
[2022-06-23 14:44] LABS: HEMOGLOBIN A1c 5.1 % (4.0-6.0)
== END ==
LOC: M LABDRWAD 12:33
PROVIDERS: ATTEND Nurse Practitioner Adult Health
DX: E03.9 Hypothyroidism, unspecified (principal); L94.0 Localized scleroderma [morphea]; Z13.220 Encounter for screening for lipoid disorders

== ENCOUNTER → 2022-08-08 | Outpatient (CLI) | payer OTHER ==
[2022-08-09 17:07] LABS: H PYLORI SERUM QUANT IGA <9.0 units (0.0-8.9); H PYLORI SERUM QUANT IGM <9.0 units (0.0-8.9); H PYLORI SERUM QUANT IgG ABY 0.65 (0.00-0.79)
== END ==
LOC: M LABDRWAD 08:29
PROVIDERS: ATTEND Family Medicine
DX: K21.9 Gastro-esophageal reflux disease without esophagitis (principal)

== ENCOUNTER → 2022-09-13 | Outpatient (REF) | payer OTHER ==
[2022-09-13 13:37] LABS: CREATININE FOR GFR 1.48 MG/DL (0.55-1.30); GLOMERULAR FILTRATION RATE 37.9 (>45)
== END ==
LOC: M LABDRWAD 12:37
PROVIDERS: ATTEND Physician Assistant
DX: Z79.899 Other long term (current) drug therapy (principal); R79.89 Other specified abnormal findings of blood chemistry; M35.9 Systemic involvement of connective tissue, unspecified

== ENCOUNTER → 2022-10-04 | Outpatient (REF) | payer OTHER ==
[~2022-10-04] MED LIST changes: -HYDR200T3; +HYDR200T46
[2022-10-04 14:41] LABS: CALCIUM LEVEL 9.8 MG/DL (8.3-10.6); CREATININE FOR GFR 1.23 MG/DL (0.55-1.30); GLOMERULAR FILTRATION RATE 46.9 (>45); POTASSIUM SERUM 4.3 MMOL/L (3.5-5.1)
== END ==
LOC: M LABDRWAD 12:26
PROVIDERS: ATTEND Physician Assistant
DX: Z79.899 Other long term (current) drug therapy (principal); M35.9 Systemic involvement of connective tissue, unspecified; R79.89 Other specified abnormal findings of blood chemistry

== ENCOUNTER → 2022-11-03 | Outpatient (CLI) | payer OTHER ==
[2022-11-03 11:09] LABS: BASO % 0.6 % (0.0-1.0); EOS # 0.1 10^3/uL (0.0-0.5); EOS % 1.7 % (0.0-3.0); HEMATOCRIT 37.5 % (36.0-47.0); HEMOGLOBIN 12.3 g/dl (12.0-15.5); LYMPH # 1.2 10^3/uL (1.5-5.0); LYMPH % 22.9 % (24.0-44.0); MEAN CORPUSCULAR HEMOGLOBIN 31.8 pg (27.0-33.0); MEAN CORPUSCULAR HGB CONC 32.8 g/dl (32.0-36.5); MEAN CORPUSCULAR VOLUME 96.9 fl (80.0-96.0); MONO # 0.3 10^3/uL (0.0-0.8); MONO % 5.9 % (2.0-8.0); NEUTROPHILS # 3.6 10^3/uL (1.5-8.5); NEUTROPHILS % 68.7 % (36.0-66.0); PLATELET COUNT, AUTOMATED 241 10^3/uL (150-450); RED BLOOD COUNT 3.87 10^6/uL (4.00-5.40); WHITE BLOOD COUNT 5.3 10^3/uL (4.0-10.0)
[2022-11-03 11:26] LABS: IRON (FE) 95 UG/DL (50-170); PERCENT SATURATION 35.7 % (13.2-45.0); TOTAL IRON BINDING CAPACITY 266 UG/DL (250-425)
[2022-11-03 11:27] LABS: FREE T4 1.35 NG/DL (0.89-1.76); THYROID STIMULATING HORMONE 10.682 uIU/ML (0.55-4.78)
[2022-11-03 11:28] LABS: FERRITIN 57.5 NG/ML (7.3-270.7); FOLATE > 24.00 NG/ML (>5.4)
== END ==
LOC: M PLALAB 08:57
PROVIDERS: ATTEND Nurse Practitioner Adult Health
DX: L94.0 Localized scleroderma [morphea] (principal); M15.0 Primary generalized (osteo)arthritis; I73.00 Raynaud's syndrome without gangrene; E66.01 Morbid (severe) obesity due to excess calories; E03.9 Hypothyroidism, unspecified; Z68.41 Body mass index [BMI] 40.0-44.9, adult

== ENCOUNTER → 2022-11-29 | Outpatient (CLI) | payer OTHER ==
[2022-11-29 14:20] LABS: THYROID STIMULATING HORMONE 4.64 uIU/ML (0.55-4.78)
[2022-11-29 14:21] LABS: FREE T4 1.54 NG/DL (0.89-1.76)
== END ==
LOC: M PLALAB 10:17
PROVIDERS: ATTEND Nurse Practitioner Adult Health
DX: E03.9 Hypothyroidism, unspecified (principal)

== ENCOUNTER → 2023-01-18 | Outpatient (CLI) | payer OTHER ==
[2023-01-18 16:41] LABS: THYROID STIMULATING HORMONE 4.774 uIU/ML (0.55-4.78)
[2023-01-18 16:47] LABS: FREE T4 1.57 NG/DL (0.89-1.76)
== END ==
LOC: M PLALAB 12:33
PROVIDERS: ATTEND Family Medicine
DX: E03.9 Hypothyroidism, unspecified (principal)

== ENCOUNTER → 2023-05-08 | Outpatient (CLI) | payer OTHER ==
[2023-05-08 14:48] LABS: BASO # 0.1 10^3/uL (0.0-0.2); BASO % 0.8 % (0.0-1.0); EOS # 0.1 10^3/uL (0.0-0.5); EOS % 2.4 % (0.0-3.0); HEMATOCRIT 37.5 % (36.0-47.0); HEMOGLOBIN 12.1 g/dl (12.0-15.5); LYMPH # 1.6 10^3/uL (1.5-5.0); LYMPH % 27.6 % (24.0-44.0); MEAN CORPUSCULAR HEMOGLOBIN 29.8 pg (27.0-33.0); MEAN CORPUSCULAR HGB CONC 32.3 g/dl (32.0-36.5); MEAN CORPUSCULAR VOLUME 92.4 fl (80.0-96.0); MONO # 0.7 10^3/uL (0.0-0.8); MONO % 12.4 % (2.0-8.0); NEUTROPHILS # 3.3 10^3/uL (1.5-8.5); NEUTROPHILS % 56.5 % (36.0-66.0); PLATELET COUNT, AUTOMATED 293 10^3/uL (150-450); RED BLOOD COUNT 4.06 10^6/uL (4.00-5.40); WHITE BLOOD COUNT 5.9 10^3/uL (4.0-10.0)
[2023-05-08 15:06] LABS: ERYTHROCYTE SEDIMENTATION RATE 17 mm/hr (0-30)
[2023-05-08 15:08] LABS: C REACTIVE PROTEIN QUANTITATIV < 0.40 MG/DL (<1.0)
[2023-05-08 15:10] LABS: ALT/SGPT 40 U/L (7.0-40); AST/SGOT 39 U/L (<34); BLOOD UREA NITROGEN 10 MG/DL (9-23); CREATININE FOR GFR 1.08 MG/DL (0.55-1.30); GLOMERULAR FILTRATION RATE 54.4 (>45)
== END ==
LOC: M PLALAB 10:07
PROVIDERS: ATTEND Physician Assistant
DX: M35.9 Systemic involvement of connective tissue, unspecified (principal); M54.9 Dorsalgia, unspecified; I73.00 Raynaud's syndrome without gangrene; Z79.899 Other long term (current) drug therapy

== ENCOUNTER → 2023-05-08 | Outpatient (CLI) | payer OTHER ==
[2023-05-08 15:14] LABS: FREE T4 1.78 NG/DL (0.89-1.76); THYROID STIMULATING HORMONE 0.033 uIU/ML (0.55-4.78)
== END ==
LOC: M PLALAB 10:04
PROVIDERS: ATTEND Nurse Practitioner Adult Health
DX: E03.9 Hypothyroidism, unspecified (principal)

== ENCOUNTER → 2023-07-07 | Outpatient (CLI) | payer OTHER ==
[2023-07-07 11:15] LABS: THYROID STIMULATING HORMONE 0.01 uIU/ML (0.55-4.78)
[2023-07-07 11:16] LABS: FREE T4 1.89 NG/DL (0.89-1.76)
== END ==
LOC: M PLALAB 07:44
PROVIDERS: ATTEND Nurse Practitioner Adult Health
DX: E03.9 Hypothyroidism, unspecified (principal)

== ENCOUNTER → 2023-08-16 | Outpatient (REF) | payer OTHER ==
[2023-08-16 19:09] LABS: FREE T4 1.72 NG/DL (0.89-1.76); THYROID STIMULATING HORMONE 0.025 uIU/ML (0.55-4.78)
== END ==
LOC: M LABDRWAD 17:22
PROVIDERS: ATTEND Nurse Practitioner Adult Health
DX: E03.9 Hypothyroidism, unspecified (principal)

== ENCOUNTER → 2023-09-28 | Outpatient (CLI) | payer OTHER ==
[~2023-09-28] MED LIST changes: +ONDA-282 PO; -ONDA4TAB6 PO
[2023-09-28 15:28] LABS: THYROID STIMULATING HORMONE 0.036 uIU/ML (0.55-4.78)
[2023-09-28 15:30] LABS: FREE T4 1.7 NG/DL (0.89-1.76)
== END ==
LOC: M PLALAB 10:32
PROVIDERS: ATTEND Nurse Practitioner Adult Health
DX: E03.9 Hypothyroidism, unspecified (principal)

== ENCOUNTER → 2024-04-01 | Outpatient (REF) | payer OTHER | LOC: M LAB REF 17:03 | PROVIDERS: ATTEND Nurse Practitioner Adult Health | DX: N39.0 Urinary tract infection, site not specified (principal) ==

== ENCOUNTER → 2024-10-23 | Outpatient (CLI) | payer OTHER, MEDICARE | LOC: M WHC 10:27 | PROVIDERS: ATTEND Nurse Practitioner Adult Health | DX: Z12.31 Encounter for screening mammogram for malignant neoplasm of breast (principal); R92.333 Mammographic heterogeneous density, bilateral breasts ==

== ENCOUNTER → 2024-12-03 | Outpatient (CLI) | payer OTHER, MEDICARE | LOC: M PLAIMG 12:04 | PROVIDERS: ATTEND Nurse Practitioner Adult Health | DX: M25.511 Pain in right shoulder (principal) ==

== ENCOUNTER → 2025-01-11 | Outpatient (CLI) | payer OTHER, MEDICARE | LOC: M RAD 08:09 | PROVIDERS: ATTEND Nurse Practitioner Adult Health | DX: M75.121 Complete rotator cuff tear or rupture of right shoulder, not specified as traumatic (principal); M67.813 Other specified disorders of tendon, right shoulder; M25.511 Pain in right shoulder ==